=== PATIENT | male | born 1970 | race Caucasian/White ===

== ENCOUNTER → 2016-08-28 14:26 | Emergency (ER) | payer MEDICARE ==
[2016-08-28 17:45] VITALS: BP 140/95
--- NOTE | 2016-08-28 21:42 | ED ---
Throat Pain/Nasal Congestion - HPI Summary HPI Summary: 46 male presents with complaints of a cough and stuffy nose x 4 days. Patient has tried taking Mucinex and Claritin without much relief. Patient denies productive cough, SOB, and chest pain. Denies nausea, vomiting, diarrhea, and abdominal pain. No known fever. Admits to subjective chills. Has been eating and drinking. Symptoms worsen at night. No PMHx. - History of Current Complaint Chief Complaint: EDUpperRespComplaint Time Seen by Provider: 08/28/16 17:01 Hx Obtained From: Patient Onset/Duration: Sudden Onset, Lasting Days - 4 Severity: Mild Associated Signs And Symptoms: Positive: Sinus Discomfort, Nasal Discharge Cough: Nonproductive - Allergies/Home Medications Allergies/Adverse Reactions: Allergies Allergy/AdvReac Type Severity Reaction Status Date / Time Penicillins [PCN] Allergy Rash Verified 08/28/16 14:41 PMH/Surg Hx/FS Hx/Imm Hx Endocrine/Hematology History: Reports: Hx Thyroid Disease - possible Cardiovascular History: Denies: Hx Hypertension Respiratory History: Denies: Hx Asthma, Hx Chronic Obstructive Pulmonary Disease (COPD) - Surgical History Surgery Procedure, Year, and Place: none - Immunization History Immunizations Up to Date: Yes Infectious Disease History: No Infectious Disease History: Denies: Traveled Outside the [place] in Last 30 Days - Family History Known Family History: Positive: Cardiac Disease - father of [place] @ 54, uncle with bypass @ 60, Other - mother thyroid, - Social History Alcohol Use: None Hx Substance Use: No Substance Use Type: Reports: None Hx Tobacco Use: No Smoking Status (MU): Never Smoked Tobacco Review of Systems Constitutional: Negative Eyes: Negative Positive: Sore Throat, Nasal Discharge Cardiovascular: Negative Positive: Cough Gastrointestinal: Negative Musculoskeletal: Negative Neurological: Negative All Other Systems Reviewed And Are Negative: Yes Physical Exam Triage Information Reviewed: Yes Vital Signs On Initial Exam: Initial Vitals Temp Pulse Resp BP Pulse Ox 97.5 F 103 18 155/97 98 08/28/16 14:42 08/28/16 14:42 08/28/16 14:42 08/28/16 14:42 08/28/16 14:42 Bp improved to 140/98 and HR improved to 90 on re-check. will recommend follow up with PCP for recheck BP Vital Signs Reviewed: Yes Appearance: Positive: Well-Appearing, No Pain Distress, Well-Nourished Skin: Positive: Warm, Skin Color Reflects Adequate Perfusion, Dry. Negative: Cold, Cyanosis @, Diaphoretic Head/Face: Positive: Normal Head/Face Inspection Eyes: Positive: Normal, Conjunctiva Clear ENT: Positive: Normal ENT inspection, Hearing grossly normal, Pharyngeal erythema - post nasal drip noted, Nasal congestion, Nasal drainage, TMs normal. Negative: TM bulging, TM dull, TM red, Tonsillar swelling, Tonsillar exudate, Trismus Dental: Negative: Cervical Lymphadenopathy Neck: Positive: Supple, Nontender, No Lymphadenopathy Respiratory/Lung Sounds: Positive: Clear to Auscultation, Breath Sounds Present , Unable to speak in full sentences. Negative: Decreased Breath Sounds, Rales, Rhonchi, Stridor, Wheezes Cardiovascular: Positive: Normal, RRR, Pulses are Symmetrical in both Upper and Lower Extremities. Negative: Murmur, Rub Abdomen Description: Positive: Nontender, Soft Bowel Sounds: Positive: Present Musculoskeletal: Positive: Normal, Strength/ROM Intact Neurological: Positive: Normal, Sensory/Motor Intact, Alert, Oriented to Person Place, Time Psychiatric: Positive: Normal AVPU Assessment: Alert Diagnostics - Vital Signs Vital Signs Temp Pulse Resp BP Pulse Ox 08/28/16 17:44 97.5 F 90 17 140/95 08/28/16 14:42 97.5 F 103 18 155/97 98 - Laboratory Lab Statement: Any lab studies that have been ordered have been reviewed, and results considered in the medical decision making process. EENT Course/Dx - Course Course Of Treatment: patient was reassured his symptoms were viral in nature and would take a few more days before he sees improvement. Continue Mucinx/ Claritin and start flonase and tessalon pearls at bedtime. Aware of worsening signs and symptoms to watch out for. Follow up with PCP, and to recheck BP. - Differential Diagnoses Differential Diagnoses: Allergic Rhinitis, Otitis Externa, Otitis Media, Pharyngitis, Sinusitis, URI/Bronchitis - Diagnoses Provider Diagnoses: Acute rhinosinusitis Discharge - Discharge Plan Condition: Stable Disposition: HOME Prescriptions: Benzonatate CAP* [Tessalon 100 MG CAP*] 100 mg PO TID #20 cap Fluticasone NASAL SPRAY 50MCG* [Flonase NASAL SPRAY 50MCG*] 2 spray BOTH NARES DAILY #1 btl Patient Education Materials: Rhinosinusitis (ED) Referrals: Mayela Chisholm MD [Primary Care Provider] - Additional Instructions: Continue taking Claritin-D and Mucinex. These may take up to 1 week to take in effect. Use prescribed nasal spray as directed and take Tessalon pearls for coughing at bedtime. Increase your fluid intake and try taking vitamins or emergen-c sold in pharmacy. Get plenty of rest. If symptoms worsen or you develop new symptoms such as fever/chills, vomiting, or shortness of breath please return. Follow up with primary care provider.
== END | disposition home or self-care (01) ==
LOC: ED 14:26
DX: J01.90 Acute sinusitis, unspecified (principal); R05 Cough
CPT/HCPCS: 99282

== ENCOUNTER 2018-02-27 07:56 | Emergency (ER) | payer MEDICARE ==
--- NOTE | 2018-02-27 08:20 | ED ---
Complex/Multi-Sys Presentation - HPI Summary HPI Summary: 47-year-old male presents with fatigue for the past month or so. He states that it difficult to get out of bed. He states that at night he develops generalized muscle aches. He denies any chest pain or shortness breath. No vomiting. No weight loss. No night sweats. No headache. Has history hypothyroidism and was seen by his primary to increase his meds. Had lab work done a couple weeks ago. Family history of hypothyroidism but no other endocrine or rheumatologic disorders. No calf pain or swelling. no history of IV drug use. no dizziness. - History Of Current Complaint Chief Complaint: EDGeneral Time Seen by Provider: 02/27/18 08:12 - Allergies/Home Medications Allergies/Adverse Reactions: Allergies Allergy/AdvReac Type Severity Reaction Status Date / Time Penicillins Allergy Rash Verified 02/27/18 08:07 PMH/Surg Hx/FS Hx/Imm Hx Endocrine/Hematology History: Reports: Hx Thyroid Disease - possible Cardiovascular History: Denies: Hx Hypertension Respiratory History: Denies: Hx Asthma, Hx Chronic Obstructive Pulmonary Disease (COPD) - Surgical History Surgery Procedure, Year, and Place: none Infectious Disease History: No Infectious Disease History: Denies: Traveled Outside the [place] in Last 30 Days - Family History Known Family History: Positive: Cardiac Disease - father of [place] @ 54, uncle with bypass @ 60, Other - mother thyroid, - Social History Alcohol Use: None Hx Substance Use: No Substance Use Type: Reports: None Hx Tobacco Use: No Smoking Status (MU): Never Smoked Tobacco Review of Systems Negative: Fever Negative: Chest Pain Negative: Shortness Of Breath Positive: Myalgia - generalized Positive: Weakness - fatigue All Other Systems Reviewed And Are Negative: Yes Physical Exam Triage Information Reviewed: Yes Vital Signs On Initial Exam: Initial Vitals Temp Pulse Resp BP Pulse Ox 97.0 F 90 19 159/99 94 02/27/18 08:04 02/27/18 08:04 02/27/18 08:04 02/27/18 08:04 02/27/18 08:04 Vital Signs Reviewed: Yes Appearance: Positive: Well-Appearing Skin: Positive: Warm, Dry Head/Face: Positive: Normal Head/Face Inspection Eyes: Positive: Normal, EOMI, EDNA, Conjunctiva Clear ENT: Positive: Normal ENT inspection, Pharynx normal, TMs normal Neck: Positive: Supple, Nontender, No Lymphadenopathy, Other: - no thyroid nodule present Respiratory/Lung Sounds: Positive: Clear to Auscultation, Breath Sounds Present Cardiovascular: Positive: Normal, RRR Abdomen Description: Positive: Nontender, Soft Bowel Sounds: Positive: Present Musculoskeletal: Positive: Normal Neurological: Positive: Normal Psychiatric: Positive: Normal Diagnostics - Vital Signs Vital Signs Temp Pulse Resp BP Pulse Ox 02/27/18 08:04 97.0 F 90 19 159/99 94 - Laboratory Result Diagrams: 02/27/18 08:21 02/27/18 08:21 Lab Statement: Any lab studies that have been ordered have been reviewed, and results considered in the medical decision making process. Complex Multi-Symp Course/Dx Course Of Treatment: 47 year old male presents with fatigue for past month. admits to some generalized body aches. no chest pain or SOB. normal physicial exam. walks with steady gait. labs wbc 3.3 which is similiar to previous. bnp normal. troponin normal. magnesium low at 1.7 so supplemented. crp normal. mono neg. tsh and free t4 normal so is on appropiate levothyroxine dose. told to follow up with primary. may need rheumatologic testing which can be done outpatient. patient understand and agrees with plan. - Diagnoses Differential Diagnoses/HQI/PQRI: Metabolic Abnormality, Urinary Tract Infection , Other - hypothyroidism Provider Diagnoses: Fatigue Discharge - Sign-Out/Discharge Documenting (check all that apply): Patient Departure - Discharge Plan Condition: Good Disposition: HOME Patient Education Materials: Fatigue (ED) Referrals: Mayela Chisholm MD [Medical Doctor] - Additional Instructions: follow up with primary Drink plenty of fluids and eat a balanced diet Return to ED if develop any new or worsening symptoms - Billing Disposition and Condition Condition: GOOD Disposition: Home
[2018-02-27 08:35] LABS: ABS Basophils 0.1 10^3/ul (0-0.2); ABS Eosinophils 0.1 10^3/ul (0-0.6); ABS Monocytes 0.5 10^3/ul (0-0.8); ABS Neutrophils 1.6 10^3/ul (1.5-7.7); ABS Nucleated RBC 0 10^3/ul; Eosinophil % 3.3 % (0-6); Hematocrit 45 % (42-52); Lymphocyte % 31.4 % (25-47); Mean Corpuscular HGB Conc 34 g/dl (31-36); Mean Corpuscular Hemoglobin 28 pg (27-31); Mean Corpuscular Volume 83 fL (80-94); Mean Platelet Volume 6.6 fL (7.4-10.4); Nucleated Red Blood Cells % 0.1; Platelet Count 288 10^3/ul (150-450); Red Blood Count 5.41 10^6/ul (4.00-5.40); Red Cell Distribution Width 15 % (10.5-15); White Blood Count 3.3 10^3/ul (3.5-10.8)
[2018-02-27 08:51] LABS: EGFR Non-African American 79.2 (>60)
[2018-02-27] MEDS ORDERED: Magnesium Chloride EC TAB* 64 MG PO ONE (08:56)
[2018-02-27 11:00] VITALS: BP 148/92
== END 2018-02-27 10:59 | disposition home or self-care (01) ==
LOC: ED 07:56
DX: R53.83 Other fatigue (principal); M79.10 Myalgia, unspecified site; Z88.0 Allergy status to penicillin; Z82.49 Family history of ischemic heart disease and other diseases of the circulatory system; Z83.49 Family history of other endocrine, nutritional and metabolic diseases
CPT/HCPCS: 36415; 80053; 82550; 83605; 83735; 83880; 84439; 84443; 84484; 85025; 85652; 86140; 86308; 86618; 99282; A9270-GY

== ENCOUNTER 2018-08-17 10:02 | Emergency (ER) | payer MEDICARE ==
[2018-08-17 10:34] VITALS: BP 142/101
[2018-08-17] MEDS ORDERED: Ondansetron ODT TAB* 4 MG PO ONE (11:37)
--- NOTE | 2018-08-17 11:41 | UC ---
Dizzy HPI HPI Summary: 48-year-old male comes in with a chief complaint of dizziness nausea vomiting diarrhea. 3 days ago patient broke her in the morning with nausea and he vomited. He reported that his vomit was black. He reports eating black cake the day before at a [employer]. After that he started with diarrhea. He reports it looks like some water black brown and green. The last diarrhea was yesterday. No diarrhea today. Patient continues to be nauseous. He has been able to eat and drink some but that increases the nausea. Denies any abdominal pain. We discussed blood looks like in the stool when he denies that it looks like he had any blood in the stool or the vomit. No fevers. He describes his dizziness as lightheadedness when he stands up. Denies any spinning. Denies any upper respiratory tract infection symptoms. - History Of Current Complaint Chief Complaint: UCAbdominalPain Stated Complaint: DIZZINESS Time Seen by Provider: 08/17/18 11:19 Pain Intensity: 0 - Allergies/Home Medications Allergies/Adverse Reactions: Allergies Allergy/AdvReac Type Severity Reaction Status Date / Time Penicillins Allergy Rash Verified 08/17/18 10:35 Home Medications: Home Medications Levothyroxine TAB* [Synthroid TAB*] 1 tab PO DAILY 08/17/18 [History Confirmed 08/17/18] PMH/Surg Hx/FS Hx/Imm Hx Previously Healthy: Yes Endocrine History: Hypothyroidism - Surgical History Surgical History: None Surgery Procedure, Year, and Place: none - Family History Known Family History: Positive: Cardiac Disease - father of [place] @ 54, uncle with bypass @ 60, Other - mother thyroid, - Social History Alcohol Use: None Substance Use Type: None Smoking Status (MU): Never Smoked Tobacco Review of Systems All Other Systems Reviewed And Are Negative: Yes Constitutional: Positive: Other - SEE HPI Skin: Positive: Negative Eyes: Positive: Negative ENT: Positive: Negative Respiratory: Positive: Negative Cardiovascular: Positive: Negative Gastrointestinal: Positive: Vomiting, Diarrhea, Nausea Motor: Positive: Negative Neurovascular: Positive: Negative Musculoskeletal: Positive: Negative Neurological: Positive: Negative Psychological: Positive: Negative Is Patient Immunocompromised?: No Physical Exam Triage Information Reviewed: Yes Appearance: No Pain Distress, Well-Nourished, Ill-Appearing - MILD Vital Signs: Initial Vital Signs Temp 98 F 05/06/19 10:31 Pulse 100 08/17/18 10:31 Resp 18 08/17/18 10:31 BP 142/101 08/17/18 10:31 Pulse Ox 100 08/17/18 10:31 Vital Signs Reviewed: Yes Eye Exam: Normal Eyes: Positive: Conjunctiva Clear ENT: Positive: Pharynx normal, TMs normal Neck exam: Normal Neck: Positive: Supple Respiratory: Positive: Lungs clear, Normal breath sounds, No respiratory distress Cardiovascular: Positive: RRR Abdomen Description: Positive: Nontender, Soft Bowel Sounds: Positive: Present Musculoskeletal Exam: Normal Musculoskeletal: Positive: Strength Intact, ROM Intact Neurological Exam: Normal Neurological: Positive: Alert, Muscle Tone Normal Psychological Exam: Normal Psychological: Positive: Age Appropriate Behavior Skin Exam: Normal Dizzy Course/Dx - Course Course Of Treatment: We discussed the possibility of blood in his vomit and stool due to the black color of those items. Patient denies that there was any blood in stool. We discussed doing a rectal exam to check for blood. Because the patient states there is no blood and is no longer having any diarrhea no rectal exam was done at this time. Because the diarrhea has stopped were not planning on getting any stool samples. Overall treating with Zofran to help with the nausea. Patient has no abdominal pain no fevers. Patient describes dizziness as being lightheaded when he stands up. She is more consistent with dehydration. Denies any spinning or focal weakness. I let the patient know that if he gets worse with abdominal pain fevers sees blood in the stool or his vomit feels like a pass out he needs to the emergency department. - Differential Dx/Diagnosis Provider Diagnosis: Lightheadedness, Dehydration, Nausea vomiting and diarrhea Discharge - Sign-Out/Discharge Documenting (check all that apply): Patient Departure All imaging exams completed and their final reports reviewed: No Studies - Discharge Plan Condition: Stable Disposition: HOME Prescriptions: Ondansetron ODT TAB* [Zofran 4 MG Odt TAB*] 4 mg PO Q6H PRN #10 tab.odt PRN Reason: Nausea Patient Education Materials: Dehydration (ED), Acute Nausea and Vomiting (ED), Acute Diarrhea (ED), Lightheadedness (ED) Referrals: Bharathi Handley MD [Primary Care Provider] - Additional Instructions: FOLLOW UP WITH YOUR DOCTOR IF NOT COMPLETELY IMPROVED. GO TO THE EMERGENCY DEPARTMENT IF YOUR CONDITION WORSENS; DEHYDRATION, ABDOMINAL PAIN, FEVER, BLOOD IN YOUR VOMIT OR STOOL, YOU FEEL LIKE PASSING OUT OR ANY QUESTIONS OR CONCERNS. - Billing Disposition and Condition Condition: STABLE Disposition: Home
== END 2018-08-17 12:06 | disposition home or self-care (01) ==
LOC: UCEAST 10:02
DX: R42 Dizziness and giddiness (principal); E86.0 Dehydration; R11.2 Nausea with vomiting, unspecified; R19.7 Diarrhea, unspecified; E03.9 Hypothyroidism, unspecified; Z88.0 Allergy status to penicillin
CPT/HCPCS: 99212; A9270-GY; G0463

== ENCOUNTER 2018-11-11 18:14 | Emergency (ER) | payer MEDICARE, OTHER ==
[2018-11-11 18:26] VITALS: BP 162/109
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
== END 2018-11-11 19:07 | disposition home or self-care (01) ==
LOC: UCEAST 18:14
DX: S39.012A Strain of muscle, fascia and tendon of lower back, initial encounter (principal); S16.1XXA Strain of muscle, fascia and tendon at neck level, initial encounter; V43.52XA Car driver injured in collision with other type car in traffic accident, initial encounter; Y92.410 Unspecified street and highway as the place of occurrence of the external cause; E07.9 Disorder of thyroid, unspecified; Z88.0 Allergy status to penicillin
CPT/HCPCS: 99212; G0463

== ENCOUNTER 2019-06-24 14:09 | Emergency (ER) | payer MEDICARE ==
[2019-06-24 14:23] VITALS: BP 159/101
--- NOTE | 2019-06-24 16:47 | UC ---
Throat Pain/Nasal Peng HPI - HPI Summary HPI Summary: 40-year-old male comes in with a complaint of sinusitis infection symptoms for about a week. He's had green rhinorrhea has a lot of frontal sinus pressure. Pain is worse at night when he is laying down and when he first wakes up. After he's been up his sinuses clear the pain decreases. Does have some postnasal drip which gives him a mild sore throat. No complaint of any chest congestion. Has been feeling pressure and is ears. - History of Current Complaint Chief Complaint: UCGeneralIllness Stated Complaint: CONGESTED Time Seen by Provider: 06/24/19 16:40 Pain Intensity: 11 - Allergies/Home Medications Allergies/Adverse Reactions: Allergies Allergy/AdvReac Type Severity Reaction Status Date / Time Penicillins Allergy Rash Verified 06/24/19 14:23 Home Medications: Home Medications Levothyroxine TAB* [Synthroid TAB*] 1 tab PO DAILY 08/17/18 [History Confirmed 06/24/19] Cyclobenzaprine HCl 10 mg PO Q8HR PRN #15 tablet 11/11/18 [Rx Confirmed 06/24/19 ] Naproxen [Naproxen 500 mg tab] 500 mg PO Q12HR #30 tablet 11/11/18 [Rx Confirmed 06/24/19] DOXYcycline CAP(*) [DOXYcycline 100MG CAP(*)] 100 mg PO BID #20 cap 06/24/19 [Rx ] Fluticasone NASAL SPRAY 50MCG* [Flonase NASAL SPRAY 50MCG*] 2 spray BOTH NARES DAILY #1 btl 06/24/19 [Rx] PMH/Surg Hx/FS Hx/Imm Hx Previously Healthy: Yes Endocrine History: Hypothyroidism Neurological History: CVA - Surgical History Surgical History: Yes Surgery Procedure, Year, and Place: eye - Family History Known Family History: Positive: Cardiac Disease - father of CA @ 54, uncle with bypass @ 60, Other - mother thyroid, - Social History Alcohol Use: None Substance Use Type: None Smoking Status (MU): Never Smoked Tobacco Review of Systems All Other Systems Reviewed And Are Negative: Yes Constitutional: Positive: Other - see hpi Skin: Positive: Negative Eyes: Positive: Negative ENT: Positive: Sore Throat, Ear Ache, Nasal Discharge, Sinus Congestion, Sinus Pain/Tenderness Respiratory: Positive: Shortness Of Breath Cardiovascular: Positive: Negative Gastrointestinal: Positive: Negative Motor: Positive: Negative Neurovascular: Positive: Negative Musculoskeletal: Positive: Negative Neurological/Mental Status: Positive: Headache Psychological: Positive: Negative Is Patient Immunocompromised?: No Physical Exam Triage Information Reviewed: Yes Appearance: Well-Appearing, No Pain Distress, Well-Nourished Vital Signs: Initial Vital Signs Temp 98 F 06/24/19 14:20 Pulse 75 06/24/19 14:20 Resp 18 06/24/19 14:20 BP 159/101 06/24/19 14:20 Pulse Ox 98 06/24/19 14:20 Vital Signs Reviewed: Yes Eye Exam: Normal Eyes: Positive: Conjunctiva Clear ENT: Positive: Pharynx normal, Nasal congestion, Nasal drainage, TMs normal Neck: Positive: Supple Respiratory: Positive: Lungs clear, Normal breath sounds, No respiratory distress Cardiovascular: Positive: RRR Musculoskeletal: Positive: Strength Intact, ROM Intact Neurological: Positive: Alert, Muscle Tone Normal Psychological: Positive: Age Appropriate Behavior Skin Exam: Normal Throat Pain/Nasal Course/Dx - Course Course Of Treatment: DISCUSSED VIRAL VERSES BACTERIAL INFECTIONS AND THE ROLE OF ANTIBIOTICS. PATIENT PREFERS TO BE ON ANTIBIOTICS AT THIS TIME. - Differential Dx/Diagnosis Provider Diagnosis: Sinusitis Discharge ED - Sign-Out/Discharge Documenting (check all that apply): Patient Departure All imaging exams completed and their final reports reviewed: No Studies - Discharge Plan Condition: Stable Disposition: HOME Prescriptions: DOXYcycline CAP(*) [DOXYcycline 100MG CAP(*)] 100 mg PO BID #20 cap Fluticasone NASAL SPRAY 50MCG* [Flonase NASAL SPRAY 50MCG*] 2 spray BOTH NARES DAILY #1 btl Patient Education Materials: Sinusitis (ED) Referrals: Bharathi Handley MD [Primary Care Provider] - Additional Instructions: FOLLOW UP WITH YOUR DOCTOR IF NOT COMPLETELY IMPROVED. GET REVALUATED SOONER IF NOT IMPROVED OR WORSE OR ANY QUESTIONS OR CONCERNS. - Billing Disposition and Condition Condition: STABLE Disposition: Home
== END 2019-06-24 16:55 | disposition home or self-care (01) ==
LOC: UCEAST 14:09
DX: J32.9 Chronic sinusitis, unspecified (principal); E03.9 Hypothyroidism, unspecified; Z79.890 Hormone replacement therapy; Z86.73 Personal history of transient ischemic attack (TIA), and cerebral infarction without residual deficits; Z88.0 Allergy status to penicillin
CPT/HCPCS: 99212; G0463

== ENCOUNTER 2021-10-23 07:17 | Observation (INO) ==
[2021-10-23 07:40] LABS: ABS Eosinophils 0.2 10^3/ul (0-0.6); ABS Lymphocytes 1.5 10^3/ul (1.0-4.8); ABS Monocytes 0.5 10^3/ul (0-0.8); ABS Neutrophils 1.8 10^3/ul (1.5-7.7); Eosinophil % 4.6 %; Hematocrit 39 % (42-52); Mean Corpuscular HGB Conc 33 g/dL (31-36); Mean Corpuscular Hemoglobin 28 pg (27-31); Mean Corpuscular Volume 84 fL (80-94); Mean Platelet Volume 6.8 fL (7.4-10.4); Nucleated Red Blood Cells % 0.1; Platelet Count 276 10^3/uL (150-450); Red Blood Count 4.69 10^6 /uL (4.18-5.48); Red Cell Distribution Width 15 % (10-15); White Blood Count 4.1 10^3/uL (3.5-10.8)
[2021-10-23 07:45] LABS: INR 0.96 (0.86-1.15)
[2021-10-23] MEDS ORDERED: NS 0.9% 1000 ml BAG 1,000 ML IV ONE (07:45)
[2021-10-23 08:12] LABS: Albumin 4.4 g/dL (3.2-5.2); Calcium 9.3 mg/dL (8.6-10.3); Globulin 2.2 g/dL (2-4); Magnesium 1.8 mg/dL (1.9-2.7); Potassium 3.9 mmol/L (3.5-5.0); Total Bilirubin 0.2 mg/dL (0.2-1.0); Total Protein 6.6 g/dL (6.4-8.9); eGFR CKD-EPI 80.4 (>60)
[2021-10-23 09:05] LABS: High Sensitivity Troponin 1 Hr 5 pg/mL (<20)
[2021-10-23] MEDS ORDERED: Ondansetron 4 mg VIAL 2 MG/ML 2 ml VIAL IV PRN (09:45)
[2021-10-23] MEDS ORDERED: Enoxaparin 40 MG/0.4 ML SYR SUBCUT SCH (10:00)
[2021-10-23] MEDS ORDERED: Regadenoson 0.4 MG/5 ML SYRINGE ONE (12:17)
[2021-10-23] MEDS ORDERED: Aminophylline 25 MG/ML VIAL ONE (12:17)
[2021-10-23 15:13] VITALS: BP 151/91
== END 2021-10-23 15:12 | disposition home or self-care (01) ==
LOC: ED 07:17 → EDHOLD 07:17
PROVIDERS: ADMIT Internal Medicine; ATTEND Internal Medicine